=== PATIENT | female | born 1975 | race Caucasian/White ===

== ENCOUNTER → 2021-12-06 10:13 | Outpatient (BNVA) | payer BC, SELFPAY | PROVIDERS: Visit Provider Nurse Practitioner Family | DX: M54.50 Low back pain, unspecified (principal); N28.89 Other specified disorders of kidney and ureter | CPT/HCPCS: 80053; 81000; 85025 ==

== ENCOUNTER 2021-12-07 12:40 | Emergency (ER) | payer BC, SELFPAY ==
[2021-12-07 12:47] VITALS: BP 156/102; PULSE 63; RESP 18; TEMP 36.6; O2SAT 98; BMI 22.6
--- NOTE | 2021-12-07 13:05 | ED_ITS ---
Documented by User: FAISAL Miller 12/07/21 14:53 HPI - Nausea/Vomiting/Diarrhea General: Chief complaint: Nausea/Vomiting/Diarrhea Stated complaint: Lower back pain, N/V/D Time Seen by Provider: 12/07/21 12:48 History of Present Illness: Patient presents here with complaints about tenderness her left flank and also her left abdomen. Patient seen at [facility] yesterday and lab tests which include CBC CMP and UA were done which were all negative for any concerning findings. Patient says she has been vomiting this week and was told to follow-up here if she continues to vomit. She patient was not given medication for her vomiting. 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 And that did not require any further treatment. Associated nausea: No Associated symtoms: Denies chest pain, headache(s) or nausea Review of Systems Const: Denies: fever(s), chills or body aches Eyes: Denies: eye discomfort ENMT: Denies: throat pain Card: Denies: chest pain Resp: Denies: dyspnea GI: Reports: abdominal pain (Hurts when pushed on. Left side); Denies: nausea or vomiting : Reports: flank pain (Left side) Skin/Breast: Denies: rash Neuro: Denies: headache(s) Psych: Denies: depression or suicidal ideation PFSH ED PFSH: Family History (Updated 12/06/21 @ 10:12 by Charlene Ramsey LPN) Father Hypertension Cancer Other Diabetes Social History (Updated 12/06/21 @ 10:13 by Charlene Ramsey LPN) Smoking and tobacco status: current every day smoker Second hand smoke exposure: No Smoking risk assessment/counseling performed?: Yes Alcohol intake: never Desire information about alcohol rehabilitation?: No Counseling given: No Desire information about substance/drug rehabilitation?: No Counseling given: No Adopted: No Caregiver/support person: No Lives independently: Yes Household members: spouse Housing: Manufactured/Mobile home Marital status: Number of children: 0 Highest education level completed: Some College, No Degree service: No Current occupational status: employed History of recent travel: No Physical Exam Const: COMMON NORMALS: no acute distress, patient oriented x3 and alert HENMT: COMMON NORMALS: normocephalic and external ears normal HEAD & SCALP: normocephalic EXTERNAL EAR: Yes external ears normal Eye: COMMON NORMALS: EOMs intact bilaterally Neck/C-Spine: COMMON NORMALS: no JVD Resp: COMMON NORMALS: normal respiratory effort and No use of accessory muscles Cardio: COMMON NORMALS: no JVD GI: INSPECTION: Yes normal to inspection AUSCULTATION: Yes normoactive bowel sounds PALPATION: Yes Tenderness to palpation present (GI) Details: LUQ : OTHER: Flank pain left side with percussion Extremity: COMMON NORMALS: normal to inspection and full ROM Neuro: COMMON NORMALS: patient oriented x3 SENSORIUM/ORIENTATION: Yes alert Psych: COMMON NORMALS: mental status grossly normal Skin: COMMON NORMALS: no rashes or lesions noted GENERAL SKIN EXAM: no rashes or lesions noted Course Vital Signs: Vital signs: Vital Signs Temperature 97.9 F 12/07/21 12:47 Pulse Rate 61 12/07/21 15:07 Respiratory Rate 16 12/07/21 15:07 Blood Pressure 106/76 12/07/21 15:07 Pulse Oximetry 96 12/07/21 15:07 MDM - Nausea/Vomiting/Diarrhea Medical Decision Making Patient presents with left flank pain is been present since July. Patient moved here in June has not followed up with anybody. Patient seen urgent care yesterday and had lab work done which is negative for any concerning findings. Patient was told if she continued vomit she should come the ER. Patient said she is vomited daily. She denies marijuana usage patient did not vomit while here in the ER. Patient was given Toradol and Zofran and this helped her pain immensely. CT renal system showed left renal scarring with underlying parenchymal calcification. 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 I encouraged patient to follow-up and establish clinic and she chose [facility] and wants to see a physician not a midlevel. All questions were answered patient satisfaction patient discharged home. Did have prescription for pain medication and nausea. Lab Data Radiology Impressions Abdomen/Pelvis CT 12/07/21 13:05 IMPRESSION: No acute findings. There is left renal scarring. Discharge Plan Discharge Patient Disposition: Home Clinical Impression: Renal scarring Condition: Stable Prescriptions: New Zofran 4 mg tablet 4 mg PO Q8H 3 Days Qty: 9 0RF Celebrex 100 mg capsule 100 mg PO BID Qty: 20 0RF Discharge Orders: Discharge ED (Routine); Ordered 12/07/21 Ordered By: Hira Salazar Discharge Diet: Usual diet Discharge Activity: Increase activity as tolerated Activity Restrictions/Additional Instructions: Follow-up with medical provider as directed. Take medications as prescribed. Return to the ER or your medical provider if condition worsens. Please read and understand discharge instructions. If any questions ask please. Hospital contact you for follow-up appointment with a clinic in [facility]. Coding Level of Care Code ED Cloth Doubling Machine Operator for Chg Fwd Exam Comprehensive Documented by User: Aníbal Tran DO 12/07/21 16:12 HPI - Nausea/Vomiting/Diarrhea General: Chief complaint: Nausea/Vomiting/Diarrhea Stated complaint: Lower back pain, N/V/D Time Seen by Provider: 12/07/21 12:48 PFSH ED PFSH: Family History (Updated 12/06/21 @ 10:12 by Charlene Ramsey LPN) Father Hypertension Cancer Other Diabetes Social History (Updated 12/06/21 @ 10:13 by Charlene Ramsey LPN) Smoking and tobacco status: current every day smoker Second hand smoke exposure: No Smoking risk assessment/counseling performed?: Yes Alcohol intake: never Desire information about alcohol rehabilitation?: No Counseling given: No Desire information about substance/drug rehabilitation?: No Counseling given: No Adopted: No Caregiver/support person: No Lives independently: Yes Household members: spouse Housing: Manufactured/Mobile home Marital status: Number of children: 0 Highest education level completed: Some College, No Degree service: No Current occupational status: employed History of recent travel: No Course ED course: I was the attending physician present in the emergency department when this patient was seen by the midlevel clinician. I did not personally see this patient nor did I discussed this patient at any time with the midlevel. This chart is being cosigned as part of department policy. Vital Signs: Vital signs: Vital Signs Temperature 97.9 F 12/07/21 12:47 Pulse Rate 61 12/07/21 15:07 Respiratory Rate 16 12/07/21 15:07 Blood Pressure 106/76 12/07/21 15:07 Pulse Oximetry 96 12/07/21 15:07 MDM - Nausea/Vomiting/Diarrhea Lab Data Radiology Impressions Abdomen/Pelvis CT 12/07/21 13:05 IMPRESSION: No acute findings. There is left renal scarring. Discharge Plan Discharge Patient Disposition: Home Clinical Impression: Renal scarring Condition: Stable Prescriptions: New Zofran 4 mg tablet 4 mg PO Q8H 3 Days Qty: 9 0RF Celebrex 100 mg capsule 100 mg PO BID Qty: 20 0RF Discharge Orders: Discharge ED (Routine); Ordered 12/07/21 Ordered By: Hira Salazar Discharge Diet: Usual diet Discharge Activity: Increase activity as tolerated Activity Restrictions/Additional Instructions: Follow-up with medical provider as directed. Take medications as prescribed. Return to the ER or your medical provider if condition worsens. Please read and understand discharge instructions. If any questions ask please. Hospital contact you for follow-up appointment with a clinic in [facility]. Coding Level of Care Code ED Cloth Doubling Machine Operator for Chg Fwd Exam Comprehensive
--- NOTE | 2021-12-07 13:05 | CTR_ITS ---
PROCEDURE INFORMATION: Exam: CT Abdomen And Pelvis Without Contrast Exam date and time: 12/07/2021 1:23 PM Age: 46 years old Clinical indication: Abdominal pain; Flank; Left; TECHNIQUE: Imaging protocol: Computed tomography of the abdomen and pelvis without contrast. Radiation optimization: All CT scans at this facility use at least one of these dose optimization techniques: automated exposure control; mA and/or kV adjustment per patient size (includes targeted exams where dose is matched to clinical indication); or iterative reconstruction. COMPARISON: No relevant prior studies available. RADIATION DOSE METRICS: Total DLP (mGy-cm): 650.6 FINDINGS: Liver: Normal. No mass. Gallbladder and bile ducts: Normal. No calcified stones. No ductal dilation. Pancreas: Normal. No ductal dilation. Spleen: Normal. No splenomegaly. Adrenal glands: Normal. No mass. Kidneys and ureters: There is left renal scarring with underlying parenchymal calcification. Stomach and bowel: Unremarkable. No obstruction. No mucosal thickening. Appendix: A normal appendix is identified. Intraperitoneal space: There is a physiologic amount of free fluid in the pelvis. Vasculature: Unremarkable. No abdominal aortic aneurysm. Lymph nodes: Unremarkable. No enlarged lymph nodes. Urinary bladder: Unremarkable as visualized. Reproductive: Unremarkable as visualized. Bones/joints: Unremarkable. No acute fracture. Soft tissues: Unremarkable. CT/CT kidney stone [id number] IMPRESSION: No acute findings. There is left renal scarring.
[2021-12-07] MEDS: ondansetron 2 mg/ML SDV 2 mL 4 MG IM (13:27)
[2021-12-07] MEDS: ketorolac 60 mg/2 mL INJ IM (13:27)
[2021-12-07 13:48] VITALS: BP 115/82; PULSE 54; RESP 16; O2SAT 100
[2021-12-07 15:07] VITALS: BP 106/76; PULSE 61; RESP 16; O2SAT 96
--- NOTE | 2021-12-10 12:57 | DCPLANNER ---
insurance risk manager had message to speak with patient about getting established with a primary care physician. insurance risk manager called phone number [phone], unable to speak with patient and unable to leave a voicemail for patient.
== END 2021-12-07 15:08 | disposition home or self-care (01) ==
PROVIDERS: Emergency Provider Nurse Practitioner Family
DX: N28.89 Other specified disorders of kidney and ureter (principal); F17.210 Nicotine dependence, cigarettes, uncomplicated
CPT/HCPCS: 74176; 96372; 99283; J1885; J2405

== ENCOUNTER 2022-04-07 11:57 | Emergency (ER) | payer BC, SELFPAY ==
[2022-04-07 12:06] VITALS: BP 117/79; PULSE 95; RESP 16; TEMP 37.2; O2SAT 97
[2022-04-07 13:04] LABS: SARS Covid-2 Antigen Negative (Negative)
[2022-04-07 13:05] LABS: Influenza A by IFA Negative (Negative); Influenza B by IFA Negative (Negative)
== END 2022-04-07 15:41 | disposition left against medical advice (07) ==
PROVIDERS: Emergency Medicine; Emergency Provider Family Medicine
DX: Z53.21 Procedure and treatment not carried out due to patient leaving prior to being seen by health care provider (principal)
CPT/HCPCS: 87426; 87804

== ENCOUNTER → 2022-04-09 14:46 | Outpatient (BNVA) | payer BC, SELFPAY | PROVIDERS: Visit Provider Nurse Practitioner Family | DX: R50.9 Fever, unspecified (principal); Z20.822 Contact with and (suspected) exposure to COVID-19; R52 Pain, unspecified | CPT/HCPCS: 80053; 81000; 85025; 87635 ==